=== PATIENT | male | born 1970 | race Caucasian/White ===

== ENCOUNTER 2020-02-04 00:50 | Emergency (ER) | payer BC ==
[~2020-02-04] VITALS: Ht 190.5 cm; Wt 117.9 kg
[2020-02-04 01:02] VITALS: BP 154/78
[2020-02-04] MEDS ORDERED: EPINEPHrine SQ STA (01:06)
[2020-02-04] MEDS ORDERED: SOLU-MEDROL IV STA (01:06)
[2020-02-04] MEDS ORDERED: BENADRYL IV STA (01:06)
[2020-02-04] MEDS ORDERED: PEPCID IV STA (01:06)
[2020-02-04] MEDS ORDERED: EPINEPHrine ONE (01:09)
[2020-02-04] MEDS ORDERED: SOLU-MEDROL ONE (01:09)
[2020-02-04] MEDS ORDERED: BENADRYL ONE (01:09)
[2020-02-04] MEDS ORDERED: PEPCID IV ONE (01:10)
--- NOTE | 2020-02-04 01:13 | ER.PDOC ---
General Chief Complaint: Skin Rash/Abscess Stated Complaint: SKIN RASH Time seen by MD: 01:07 Source: patient Exam Limitations: no limitations History of Present Illness Initial Comments Skin rash since yesterday with itching and lips swollen. Timing/Duration: 24 hours Severity: moderate Location: generalized Quality: itchy Identified Cause: possibly Exposure: MARGARITA inhibitor Past Medical History Medical History: high cholesterol, hypertension Surgical History: no surgical history Social History Alcohol Use: none Drug Use: none Constitutional: no symptoms reported EENTM: see HPI Respiratory: no symptoms reported Cardiovascular: no symptoms reported Gastrointestinal: no symptoms reported Genitourinary: no symptoms reported Skin: see HPI All Other Systems: Reviewed and Negative Physical Exam General Appearance: alert, no distress Skin: skin rash Location: generalized Character: urticarial Extremities: non-tender, nml ROM, no edema EENT: swelling (lips) Neck: trachea midline, no swelling Respiratory: no resp. distress, breath sounds nml CVS: reg. rate & rhythm, heart sounds nml Abdomen: non-tender, no organomegaly NEURO/PSYCH: oriented x 3, CN's nml as tested, motor nml, sensation nml, mood/affect nml Results/Orders Results/Orders Orders - LILIANA ISLAS MD Epinephrine (Epinephrine) (02/04/20 01:06) Methylprednisolone Sod Succ (Solu-Medrol (02/04/20 01:06) Famotidine/Pf (Pepcid) (02/04/20 01:06) Diphenhydramine Hcl (Benadryl) (02/04/20 01:06) Diphenhydramine Hcl (Benadryl) (02/04/20 01:09) Methylprednisolone Sod Succ (Solu-Medrol (02/04/20 01:09) Epinephrine (Epinephrine) (02/04/20 01:09) Famotidine/Pf (Pepcid) (02/04/20 01:10) Vital Signs Date Time Temp Pulse Resp B/P (MAP) Pulse Ox O2 Delivery O2 Flow Rate FiO2 02/04/20 01:02 98.0 78 18 98 02/04/20 01:02 98.0 78 18 02/04/20 01:02 98.0 78 18 98 Administered Medications Medications (Trade) Dose Ordered Sig/Lewis Route PRN Reason Start Time Stop Time Status Last Admin Dose Admin Diphenhydramine HCl (Benadryl) 50 mg STAT STAT IV 02/04/20 01:06 02/04/20 01:08 DC 02/04/20 01:30 50 MG Epinephrine HCl (EPINEPHrine) 0.3 mg STAT STAT SQ 02/04/20 01:06 02/04/20 01:08 DC 02/04/20 01:29 0.3 MG Famotidine (Pepcid) 20 mg STAT STAT IV 02/04/20 01:06 02/04/20 01:08 DC 02/04/20 01:29 20 MG Methylprednisolone Sodium Succinate (Solu-Medrol) 125 mg STAT STAT IV 02/04/20 01:06 02/04/20 01:08 DC 02/04/20 01:29 125 MG Progress Progress Patient feeling better and rash resolving. Departure Time of Disposition: 02:03 Disposition: 01 HOME, SELF-CARE Impression: Primary Impression: Acute allergic reaction Additional Impressions: Angioedema Urticaria Condition: Improved Referrals: PCP,UNKNOWN (PCP) PRIMARY CARE PROVIDER Additional Instructions: Stop Lisinopril Prednisone Pepcid Benadryl F/U with your PCP in 2-3 days Return to ED if worsening symptoms or concerns Duration or Time Spent with Pa: 30 min Problem Qualifiers Primary Impression: Acute allergic reaction Encounter type: initial encounter Qualified Codes: T78.40XA - Allergy, unspecified, initial encounter Additional Impressions: Angioedema Encounter type: initial encounter Qualified Codes: T78.3XXA - Angioneurotic edema, initial encounter LILIANA ISLAS MD Feb 04, 2020 01:13
[2020-02-04 02:02] VITALS: BP 122/74
== END 2020-02-04 02:28 | disposition home or self-care (01) ==
LOC: ER 00:50
DX: T78.3XXA Angioneurotic edema, initial encounter (principal); E78.00 Pure hypercholesterolemia, unspecified; I10 Essential (primary) hypertension; X58.XXXA Exposure to other specified factors, initial encounter
CPT/HCPCS: 96372; 96374; 96375; 99284; J0171; J1200; J2930; J3490; 99285